=== PATIENT | male | born 1990 | race American Indian/Alaskan Native ===

== ENCOUNTER 2021-05-07 14:08 | Emergency (ER) | payer SELFPAY ==
[2021-05-07 15:30] VITALS: BP 137/69
== END 2021-05-07 20:00 | disposition left against medical advice (07) ==
LOC: ED 14:08
DX: R05 Cough (principal); R50.9 Fever, unspecified; M79.18 Myalgia, other site; Z53.21 Procedure and treatment not carried out due to patient leaving prior to being seen by health care provider

== ENCOUNTER 2022-04-16 12:31 | Emergency (ER) | payer SELFPAY ==
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
[2022-04-16] MEDS ORDERED: TETANUS,DIPH,PERTUSS(ACELL) VACCINE 0.5 ML SYRINGE IM ONE (14:47)
[2022-04-16] MEDS ORDERED: oxyCODONE /ACETAMINOPHEN 5-325MG TAB PO ONE ×2 (14:47→18:00)
[2022-04-16 14:52] VITALS: BP 120/75
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
[2022-04-16] MEDS ORDERED: KETOROLAC 10 MG TAB PO ONE (18:00)
[2022-04-16] MEDS ORDERED: LIDOCAINE (1%) 10 MG/1 ML VIAL 20 ML MDV INFILTRATI ONE (18:24)
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
== END 2022-04-16 20:42 | disposition home or self-care (01) ==
LOC: ED 12:31
DX: S41.112A Laceration without foreign body of left upper arm, initial encounter (principal); Z79.899 Other long term (current) drug therapy; X50.1XXA Overexertion from prolonged static or awkward postures, initial encounter; Y93.89 Activity, other specified; Y92.89 Other specified places as the place of occurrence of the external cause; Y99.8 Other external cause status
CPT/HCPCS: 90471; 90715; 99283